=== PATIENT | female | born 2000 | race Caucasian/White ===

== ENCOUNTER → 2021-02-16 | Outpatient (CLI) | payer OTHER ==
--- NOTE | 2021-02-16 10:58 | ECHOF ---
Referral Reason:R55.9 MEASUREMENTS -------- HEIGHT: 172.7 cm WEIGHT: 65.3 kg BP: RVIDd: 2.8 cm (< 3.3) IVSd: 1.0 cm (0.6 - 1.1) LVIDd: 3.7 cm (3.9 - 5.3) LVPWd: 1.2 cm (0.6 - 1.1) IVSs: 1.4 cm LVIDs: 2.4 cm LVPWs: 1.6 cm LAESV Index (A-L): 26.06 ml/m Ao Diam: 2.1 cm (2.0 - 3.7) AV Cusp: 1.3 cm (1.5 - 2.6) LA Diam: 2.4 cm (2.7 - 3.8) MV EXCURSION: 17.333 mm (> 18.000) MV EF SLOPE: 124 mm/s (70 - 150) EPSS: 1.0 cm MV E Nicanor: 0.69 m/s MV DecT: 179 ms MV A Nicanor: 0.66 m/s MV E/A Ratio: 1.04 RAP: 5.00 mmHg RVSP: 24.62 mmHg FINDINGS -------- This was a technically good study. The left ventricular size is normal. Left ventricular wall thickness is normal. Overall left vent ricular systolic function is normal with, an EF between 55 - 60 %. The diastolic filling pattern is normal for the age of the patient 5.88. The right ventricle is normal in size. The left atrial size is normal. Normal LA size by volume 22+/-6 ml/m2. The right atrial size is normal. Interatrial and interventricular septum intact. The aortic valve is trileaflet and appears structurally normal. The mitral valve is normal. There is trace to mild mitral regurgitation. The tricuspid valve appears structurally normal. Mild tricuspid regurgitation present. Right vent ricular systolic pressure is normal at < 35 mmHg. There is no pulmonic regurgitation present. The aortic root size is normal. Normal inferior vena cava with normal inspiratory collapse consistent with estimated right atrial pre ssure of 5 mmHg. There is no pericardial effusion. CONCLUSIONS -------- 1. The left ventricular size is normal. 2. Left ventricular wall thickness is normal. 3. Overall left ventricular systolic function is normal with, an EF between 55 - 60 %. 4. The diastolic filling pattern is normal for the age of the patient 5.88 5. Mild tricuspid regurgitation present. 6. There is no pericardial effusion. TIRE ADJUSTER: Judi Acuna RDCS
== END | disposition home or self-care (01) ==
LOC: RADECHMAIN 08:20
PROVIDERS: ATTEND Family Medicine
DX: I07.1 Rheumatic tricuspid insufficiency (principal); R55 Syncope and collapse
CPT/HCPCS: 93306

== ENCOUNTER → 2021-02-17 | Outpatient (CLI) | payer OTHER | END | disposition home or self-care (01) | LOC: RADECHMAIN 11:53 | PROVIDERS: ATTEND Family Medicine | DX: R55 Syncope and collapse (principal) | CPT/HCPCS: 93225; 93226 ==

== ENCOUNTER 2021-02-27 18:16 | Emergency (ER) | payer OTHER ==
[2021-02-27 18:20] VITALS: BP 137/88; PULSE 93; RESP 20; TEMP 97.8
--- NOTE | 2021-02-27 18:45 | ED ---
Upper Extremity HPI - General Chief Complaint: Extremity Injury, Upper Stated Complaint: L hand injury Time Seen by Provider: 02/27/21 18:21 Source: patient Mode of arrival: ambulatory Limitations: no limitations - History of Present Illness Initial Comments: 20-year-old female presents to emergency Department with a chief complaint of left wrist pain. Patient reports incident occurred yesterday while she was tubing. Patient reports her hand got caught under and trauma occurred mostly on the medial aspect of the left hand. He states most the pain is located near the fourth and fifth metacarpal bones. She did report some ecchymosis which is since resolved. Denies any paresthesias in reports full range of motion and strength in the hand. States she is able to move the fingers without any difficulties. - Related Data Allergies Allergy/AdvReac Type Severity Reaction Status Date / Time No Known Allergies Allergy Verified 02/27/21 18:20 Review of Systems ROS Statement: Those systems with pertinent positive or pertinent negative responses have been documented in the HPI. ROS Other: All systems not noted in ROS Statement are negative. Past Medical History Past Medical History: No Reported History History of Any Multi-Drug Resistant Organisms: None Reported Past Surgical History: No Surgical Hx Reported Past Psychological History: No Psychological Hx Reported Smoking Status: Never smoker Past Alcohol Use History: Occasional Past Drug Use History: None Reported General Exam Limitations: no limitations General appearance: alert, in no apparent distress Head exam: Present: atraumatic, normocephalic, normal inspection Eye exam: Present: normal appearance, PERRL, EOMI Pupils: Present: normal accommodation ENT exam: Present: normal exam, normal oropharynx, mucous membranes moist Neck exam: Present: normal inspection, full ROM. Absent: tenderness, lymphadenopathy Respiratory exam: Present: normal lung sounds bilaterally. Absent: respiratory distress Cardiovascular Exam: Present: regular rate, normal rhythm, normal heart sounds. Absent: systolic murmur Extremities exam: Present: normal inspection, full ROM, tenderness (Tenderness near the fourth and fifth metacarpal bones or left hand.), normal capillary refill, other (Palpable ulnar and radial pulses). Absent: pedal edema, joint swelling, calf tenderness Back exam: Present: normal inspection, full ROM. Absent: tenderness Neurological exam: Present: alert, oriented X3 Psychiatric exam: Present: normal affect, normal mood Skin exam: Present: warm, dry, intact, normal color Course Vital Signs 02/27/21 18:18 Temperature 97.8 F Pulse Rate 93 Respiratory 20 Rate Blood Pressure 137/88 O2 Sat by Pulse 99 Oximetry Medical Decision Making - Medical Decision Making 20-year-old female presents to emergency Department with a chief complaint of left wrist pain. Physical examination is unremarkable. No scaphoid tenderness X-ray reveals no acute findings. I suspect a sprain of the hand. Patient was advised to follow with orthopedically impaired teacher. Strict return parameters were thoroughly discussed the patient was assessed and agreeable. Case discussed physician Disposition Clinical Impression: Sprain of hand, left Disposition: HOME SELF-CARE Condition: Stable Instructions (If sedation given, give patient instructions): Hand Sprain (ED) Additional Instructions: Follow-up with orthopedically impaired teacher. Return to emergency department if symptoms worsen. Is patient prescribed a controlled substance at d/c from ED?: No Referrals: Stephanie Blair MD [Primary Care Provider] - 1-2 days Darien Justice DO [Doctor of Osteopathic Medicine] - 1-2 days Time of Disposition: 19:04
--- NOTE | 2021-02-27 19:00 | XR ---
EXAMINATION TYPE: XR hand complete LT DATE OF EXAM: 02/27/2021 COMPARISON: NONE HISTORY: Pain TECHNIQUE: 3 views FINDINGS: Metacarpals are intact. I see no fracture nor dislocation. There are no erosions. Carpal chad jayne are intact. The joint spaces are fairly normal. There is small bone island in the scaphoid bone. IMPRESSION: Negative left hand exam.
== END 2021-02-27 19:06 | disposition home or self-care (01) ==
LOC: EC 18:16
DX: S63.92XA Sprain of unspecified part of left wrist and hand, initial encounter (principal); W23.0XXA Caught, crushed, jammed, or pinched between moving objects, initial encounter; Y93.16 Activity, rowing, canoeing, kayaking, rafting and tubing
CPT/HCPCS: 99283

== ENCOUNTER → 2021-07-12 | Outpatient (CLI) | payer OTHER ==
--- NOTE | 2021-07-14 04:51 | MR ---
EXAMINATION TYPE: MR pelvis wo/w con DATE OF EXAM: 07/12/2021 COMPARISON: CT scan 05/28/2021 HISTORY: Pelvic pain, uterine anomoly. CONTRAST: Standard multiplanar, multisequence MRI departmental protocol images were obtained without contrast a nd with 6.5 mL intravenous Gadavist gadolinium contrast. The bladder distends smoothly. Uterus is anteverted. Endometrium within normal limits. There is large cervical canal. There is no free fluid in the pelvis. 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 There is also septated body of the uterus and this is consistent with uterus didelphys. There is no adnexal m ass. The hip joints appear normal. Acetabula appear normal. Sacroiliac joints appear normal. There is no a scites. 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 No pelvic mass.
== END | disposition home or self-care (01) ==
LOC: RADMRIMAIN 15:29
PROVIDERS: ATTEND Obstetrics & Gynecology Obstetrics
DX: Q51.28 Other and unspecified doubling of uterus (principal)
CPT/HCPCS: 72197; A9585

== ENCOUNTER → 2022-08-24 | Outpatient (CLI) | payer BC, OTHER ==
--- NOTE | 2022-09-05 01:53 | EM ---
EVENT MONITOR SEVEN-DAY EVENT MONITOR: Predominant rhythm is sinus. Sinus rhythm and sinus tachycardia were noted. No evidence of any significant ventricular or supraventricular ectopy. There was no bradyarrhythmia. When the patient felt racing of the heart, she was in a sinus rhythm or sinus tachycardia. This is an unremarkable 7-day event monitor. MMODL / IJN: [id number] /
== END | disposition home or self-care (01) ==
LOC: RADECHMAIN 07:34
PROVIDERS: ATTEND Family Medicine
DX: R00.1 Bradycardia, unspecified (principal); R55 Syncope and collapse
CPT/HCPCS: 93270

== ENCOUNTER 2022-11-22 10:55 | Day surgery (SDC) | payer BC, OTHER ==
[2022-11-19 15:07] VITALS: BMI 22.8
[~2022-11-22 10:55] MED LIST: SODIUM CHLORIDE 0.9% 1,000 ML IV SCH
[2022-11-22] MEDS ORDERED: SODIUM CHLORIDE 0.9% 500 ML 500 ML IV ONE (11:10)
[2022-11-22 11:20] VITALS: BP 128/75; PULSE 61; RESP 16; TEMP 98.7
--- NOTE | 2022-11-22 18:51 | P.EPPROC ---
- EP Procedure Note Electrophysiology Procedure Note: Diagnosis Recurrent syncope Twelve-lead EKG shows sinus rhythm normal KS narrow QRS normal ST segments Normal QT interval Tilt table test per protocol Baseline blood pressure 108/66. Millimeters of mercury, Baseline heart rate 60 beats a minute Patient was tilted upright at an angle of 70 per protocol Very mild increase in heart rate No change in blood pressure Patient complained of being a little dizzy No evidence for neuro cardiac syncope Impression Normal 12-lead EKG Normal heart rate and blood pressure during tilt table testing
== END 2022-11-22 13:25 | disposition home or self-care (01) ==
LOC: CATHEP 10:55
PROVIDERS: ATTEND Internal Medicine Clinical Cardiac Electrophysiology
DX: R42 Dizziness and giddiness (principal); I08.1 Rheumatic disorders of both mitral and tricuspid valves; Z82.49 Family history of ischemic heart disease and other diseases of the circulatory system; Z87.891 Personal history of nicotine dependence; F10.20 Alcohol dependence, uncomplicated; Z79.899 Other long term (current) drug therapy
CPT/HCPCS: 81025; 93660

== ENCOUNTER → 2023-09-19 | Outpatient (CLI) | payer BC, OTHER ==
--- NOTE | 2023-09-19 16:08 | XR ---
EXAMINATION TYPE: XR wrist complete LT DATE OF EXAM: 09/19/2023 3:05 PM CLINICAL INDICATION:Female, 23 years old with history of S63.90XA wrist sprain; COMPARISON: None TECHNIQUE: XR wrist complete LT; examined in the Frontal, navicular, lateral, and oblique. FINDINGS: No acute osseous pathology, joint dislocation, or joint effusion. No evidence of any soft tissue swelling is seen. IMPRESSION: No acute osseous pathology.
== END | disposition home or self-care (01) ==
LOC: RADXRMAIN 14:54
PROVIDERS: ATTEND Urology
DX: S63.90XA Sprain of unspecified part of unspecified wrist and hand, initial encounter (principal); X58.XXXA Exposure to other specified factors, initial encounter

== ENCOUNTER → 2024-07-15 | Outpatient (CLI) | payer BC ==
--- NOTE | 2024-07-15 08:40 | US ---
EXAMINATION TYPE: US abdomen complete DATE OF EXAM: 07/15/2024 COMPARISON: CT (05/28/2024) CLINICAL INDICATION: Female, 24 years old with history of R10.12 LEFT UPPER QUADRANT PAIN; TECHNIQUE: Grayscale and color Doppler imaging of the abdomen was performed. FINDINGS: EXAM MEASUREMENTS: Liver Length: 16.4 cm Gallbladder Wall: 0.2 cm CBD: 0.3 cm, color Doppler imaging was utilized to isolate the common bile duct for measurement. Spleen: 11.5 cm Right Kidney: 10.5x5.0x5.6 cm Left Kidney: 10.9x4.6x5.1 cm [employer] NOTES: Limited due to gas Pancreas: slightly limited due to gas Liver: appears within normal limits Gallbladder: No stones seen, fold visualized Evidence for sonographic Martinez's sign: No CBD: wnl Spleen: wnl Right Kidney: No hydronephrosis or masses seen Left Kidney: No hydronephrosis or masses seen Upper IVC: wnl Abd Aorta: wnl The liver is homogenous. The intrahepatic portion of the IVC and proximal abdominal aorta are within normal limits. There is no evidence of cholelithiasis. Common bile duct is unremarkable. The visu alized portions of the pancreas are homogenous. The spleen is unremarkable. Kidneys are symmetric a nd free of hydronephrosis. No renal lesions are seen. IMPRESSION: No evidence for acute process. [facility] Ashley Travis, , 07/15/2024 8:38 AM
== END | disposition home or self-care (01) ==
LOC: RADUSWWP 07:18
PROVIDERS: ATTEND Family Medicine
DX: R10.12 Left upper quadrant pain (principal)
CPT/HCPCS: 76700